=== PATIENT | female | born 1995 | race Caucasian/White ===

== ENCOUNTER 2023-09-29 17:13 | Emergency (ER) | payer OTHER ==
[~2023-09-29] VITALS: Ht 165.1 cm; Wt 79.4 kg
[2023-09-29 17:24] VITALS: BP_SYST 118; PULSE 98; RESP 18; TEMP 98.2; O2SAT 99
[2023-09-29 17:53] LABS: BASOPHILS # (AUTO) 0.1 K/uL (0.0-0.2); BASOPHILS % (AUTO) 0.5 % (0.0-2.0); EOSINOPHILS # (AUTO) 0.1 K/uL (0.0-0.4); EOSINOPHILS % (AUTO) 0.6 % (0.0-4.0); HEMATOCRIT 39.4 % (36-48); HEMOGLOBIN 13.3 g/dL (12.0-16.0); LYMPHOCYTES % (AUTO) 20.8 % (20.5-51.5); MEAN CORPUSCULAR HEMOGLOBIN 31 pg (27-31); MEAN CORPUSCULAR HGB CONC 34 % (32-36); MEAN CORPUSCULAR VOLUME 93 fL (79.0-98.0); MONOCYTES % (AUTO) 7.1 % (1.7-9.3); NEUTROPHILS # (AUTO) 10.1 K/uL (1.8-7.7); PLATELET COUNT (AUTO) 269 K/uL (130-430); RED BLOOD CELL COUNT(AUTO) 4.25 MIL/uL (4.2-6.2); RED CELL DISTRIBUTION WIDTH 13.9 % (9.0-15.0); WHITE BLOOD COUNT (AUTO) 14.2 K/uL (4.8-10.8)
[2023-09-29 18:06] LABS: BILIRUBIN,URINE NEGATIVE (NEGATIVE); COLOR,URINE YELLOW (YELLOW); GLUCOSE,URINE NEGATIVE (NEGATIVE); KETONES,URINE NEGATIVE (NEGATIVE); LEUKOCYTE ESTERASE ,URINE NEGATIVE (NEGATIVE); NITRITE, URINE NEGATIVE (NEGATIVE); PROTEIN URINE NEGATIVE (NEGATIVE); UROBILINOGEN,URINE 0.2 (0.2-1.0)
[2023-09-29 18:13] LABS: BLOOD, URINE TRACE (NEGATIVE); CLARITY/URINE HAZY (CLEAR)
[2023-09-29 18:30] LABS: BILIRUBIN,DIRECT 0.1 mg/dL (0.0-0.3); CREATININE 1.04 mg/dL (0.55-1.30); POTASSIUM 3.7 mmol/L (3.5-5.1); TOTAL BILIRUBIN 0.3 mg/dL (0.0-1.0); TOTAL PROTEIN, SERUM 8.2 g/dL (6.4-8.3)
[2023-09-29 18:39] LABS: SERUM HCG (QUALITATIVE) NEGATIVE (NEGATIVE)
[2023-09-29 18:57] LABS: BACTERIA,URINE FEW /HPF (None Seen); MUCUS,URINE 1+ /LPF (None Seen); RBC,URINE 0-3 /HPF (0-3); URINE AMORPHOUS PHOSPHATES 1+ /HPF (None Seen)
[2023-09-29] MEDS ORDERED: IBUP-1969 PO (19:47)
[2023-09-29] MEDS ORDERED: OMEP20CA15 PO (19:47)
[2023-09-29 19:58] VITALS: BP_SYST 118; PULSE 89; RESP 16; TEMP 97.4; O2SAT 95
== END 2023-09-29 19:58 | disposition home or self-care (01) ==
LOC: SED 17:13
DX: K29.70 Gastritis, unspecified, without bleeding (principal); R10.13 Epigastric pain; R11.0 Nausea; Z79.899 Other long term (current) drug therapy
CPT/HCPCS: 36415; 76705; 80048; 80076; 81000; 81001; 81015; 81025; 82150; 83605; 83690; 84703; 85025; 99284